=== PATIENT | male | born 1930 | race Caucasian/White ===

== ENCOUNTER 2017-01-16 09:27 | Inpatient (IN) ==
[2017-01-16] MEDS ORDERED: *HR* Propofol 200 MG/20 ML VIAL IVP ONE (09:47)
[2017-01-16] MEDS ORDERED: Lidocaine -MPF 2% 2 ML VIAL ONE (09:48)
[2017-01-16] MEDS ORDERED: *HR* Rocuronium Bromide 50 MG/5 ML VIAL ONE (09:50)
[2017-01-16] MEDS ORDERED: Lidocaine -MPF 4% 5 ML AMPUL ONE (09:52)
[2017-01-16] MEDS ORDERED: *HR* Heparin 5,000 UNIT/ML VIAL ONE ×3 (10:04→14:29)
[2017-01-16] MEDS ORDERED: Vancomycin 1,250 MG in D5% in Water 250 ML IVPB ONE (10:07)
[2017-01-16] MEDS ORDERED: CeFAZolin Pre 2,000 MG/100 ML 2,000 MG/100 ML BAG IVPB ONE (10:07)
--- NOTE | 2017-01-16 10:46 | Anesthesia Evaluation PreOp ---
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), Other (dementia) Other Medical History: Diabetes Type II Anesthesia History: No Prior Anesthetic Complications, Past Anesthesia (left LE amputation ORIF left humerus) Alcohol Use: none Drug use: none Medications and Allergies Aspirin [Lo-Dose Aspirin EC] 81 mg PO HS 01/10/17 [History] Clopidogrel [Plavix] 75 mg PO 1200 01/10/17 [History] Cyanocobalamin (Vitamin B-12) [Vitamin B-12] 1,000 mcg SL 1200 01/10/17 [History ] Donepezil HCl [Aricept] 10 mg PO HS 01/10/17 [History] Gabapentin [Neurontin] 100 mg PO TID 01/10/17 [History] Hydrochlorothiazide 12.5 mg PO DAILY 01/10/17 [History] Insulin Glargine,Hum.rec.anlog [Lantus Solostar] 10 unit SQ TIDWM 01/10/17 [ History] Lisinopril [Zestril] 40 mg PO DAILY 01/10/17 [History] Metformin HCl [Glucophage] 1,000 mg PO HS 01/10/17 [History] Metformin [Glucophage] 500 mg PO BIDWM 01/10/17 [History] Metoprolol XL (24 HR) Succ [Toprol Xl] 25 mg PO DAILY 01/10/17 [History] OxyCODONE/APAP 5/325 [Percocet 5/325 MG] 1 each PO Q6H PRN #20 tablet 01/10/17 [ Rx] Simvastatin [Zocor] 40 mg PO HS 01/10/17 [History] Cephalexin [Keflex] 250 mg PO BID 01/16/17 [History] Insulin Glargine,Hum.rec.anlog [Lantus Solostar] 20 unit SQ HS 01/16/17 [History ] Multivitamin [One Daily Multivitamin] 1 each PO 1200 01/16/17 [History] NIFEdipine [Nifedipine ER] 30 mg PO QAM 01/16/17 [History] Allergies No Known Allergies Allergy (Verified 01/16/17 10:31) - Meds/Allergy Pre-op Review Medications Reviewed: Yes Allergies Reviewed: Yes Beta Blockers on Current Med List: No Anesthesia Results - Labs Laboratory Tests 01/09/17 01/09/17 10:45 10:45 Hgb 13.5 Hct 42.9 Plt Count 336 BUN 24 Creatinine 1.22 - Imaging EKG: report reviewed (NSR with !st AVB and PVCs) Anesthesia Exam Height: 67in Weight: 81kg NPO (# of Hours): 8 Pain Scale: 0 Pain Scale Used: Numeric (1 - 10) - HEENT Pupil (Motor): EOMI Mallampati: II Teeth: Missing Oral Opening: Greater than 3 - DEMURRAGE WORKER LOC: Oriented (to name and place. Cooperative but uncertain what he is having done. consents for him reporting that he is very forgetful) DEMURRAGE WORKER Motor: Normal RUE, Normal LUE, Normal RLE, Normal LLE, Normal Face DEMURRAGE WORKER Sensory: Normal: RUE, LUE, RLE, LLE, Face - Cardiac Rhythm: Regular Murmur: None - Pulmonary Breath Sounds: bilateral Clear Respiratory Effort: Symmetrical Anesthesia Assess/Plan ASA Score: 3 Modified [place] Scale for Level of Consciousness: Cooperative, oriented, and tranquil Anesthetic Plan: General Monitoring Plan: Standard Monitors, A-Line (told patient and family this is a possibility) Recovery Plan: PACU (Discussed risks of GA and line. Will need power glide since no iv access. Agrees to proceed.)
[2017-01-16] MEDS ORDERED: Neostigmine Methylsulfate 3 MG/3 ML SYRINGE ONE ×2 (10:48→15:11)
[2017-01-16] MEDS ORDERED: *HR* FentaNYL (PF) 100 MCG/2 ML VIAL ONE ×2 (11:20→15:28)
--- NOTE | 2017-01-16 11:33 | History & Physical Report ---
Date of Encounter: 01/16/17 Time of Encounter: 11:20 24 Hour HP Update - Instructions Instructions: If the History and Physical is less than 30 days old and was completed prior to A.M. admission and or procedure and has NOT been updated on calendar day of procedure please complete this update prior to performing procedure. - Update Patient reports changes in Medical Condition: No Changes in examination, assessment, or condition: No Changes in Medication: No Preop tests/diagnostics Reviewed: Yes Surgery Remains Indicated: Yes Consent for Planned Operative Procedure(s) Verified: Yes - Pre-Operative Checklist Preoperative Checklist Indicated: Yes Prophylactic Antibiotic Ordered: Yes (vancomycin due to MRSA risk) Home Medications Include Beta Linda: Yes Beta Linda Taken Today (Day of Surgery): Yes Beta Linda Taken Yesterday (Day Prior to Surgery): Yes Is VTE Prophylaxis Indicated?: Yes
[2017-01-16] MEDS ORDERED: Vancomycin 1,000 MG VIAL ONE (11:34)
[2017-01-16] MEDS ORDERED: Lidocaine 1% 20 ML MDV ONE (11:34)
[2017-01-16] MEDS ORDERED: Bupivacaine-MPF 0.25% 10 ML VIAL ONE (11:34)
[2017-01-16] MEDS ORDERED: Heparin 1,000 UNITS/500 mL NS 500 ML ONE ×3 (11:34→12:10)
[2017-01-16] MEDS: Ringers Solution, Lactated 1,000 ML IVC SCH ×2 (11:42→16:05)
[2017-01-16] MEDS ORDERED: Acetaminophen IV 1,000 MG/100 ML INFUS..BTL ONE (11:56)
[2017-01-16] MEDS ORDERED: EPHEDrine 50 MG/ML VIAL ONE (12:30)
[2017-01-16] MEDS ORDERED: Ondansetron 4 MG/2 ML VIAL ONE (13:09)
[2017-01-16] MEDS ORDERED: *HR* HYDROmorphone (PF) 1 MG/ML SYRINGE IVP PRN (13:15)
[2017-01-16] MEDS ORDERED: Ondansetron 4 MG/2 ML VIAL IVP PRN (13:15)
[2017-01-16] MEDS ORDERED: *HR* Labetalol 100 MG/20 ML MDV IVP PRN (13:15)
--- NOTE | 2017-01-16 13:19 | Anesthesia Procedures ---
Date of Encounter: 01/16/17 Time of Encounter: 12:10 Procedures: Anesthesia - Arterial Line Consent obtained: written consent Time out performed: Yes Sedation: Fentanyl (mcg): 100 Supplemental Oxygen via Nasal Cannula (L/min): 15 (anesthesia circuit) Local Anesthetic: Lidocaine 1% Amount of Anesthetic used (mls): 1 Size (Gauge): 20 Length (inches): 1 3/4 Technique Used: sterile prep, guide wire technique, direct puncture technique Post-Procedure: line taped into place, dry sterile dressing placed Patient tolerated procedure: well Complications: none Site: Radial L Vitals: see anesthetic record
[2017-01-16] MEDS ORDERED: *HR* Phenylephrine 10 MG/ML VIAL ONE (14:05)
[2017-01-16] MEDS ORDERED: Esmolol 100 MG/10 ML VIAL IVP ONE (15:15)
--- NOTE | 2017-01-16 16:04 | Operative Note ---
Date of procedure: 01/16/17 Pre-op diagnosis: Peripheral vasculr disease with gangrene Post-op diagnosis: same Procedure: 1. Right lower extremity angiogram. 2. Right superficial femoral and popliteal artery angioplasty with 4 x 220mm balloon. 3. Right ilifemoral and deep femoral endarerectomy with bovine pericardial patch angioplasty. Complications: None Anesthesia: THELMA Surgeon: Raymon Dick Estimated blood loss (cc): 300 Specimen: Right lower extremity plaque Condition: stable Disposition: PACU Procedure in Detail: Indications: The patient is an 86 year old male with a history of peripheral vascular disease. The patient has developed a nonhealing right great toe ulceration with gangrenous changes present at the tip. He was found to have significant iliofemoral artery disease as well as high grade superficial femoral and popliteal artery stenosis. Procedure: The patient was identified in the preoperative area. The risks, benefits, and alternatives of procedure were discussed and all questions were answered. He was taken to the operating room and placed in supine position on the operating room table. After the induction of general endotracheal anesthesia, she was cleaned and draped in normal sterile fashion. An oblique incision was made in the right groin sharply. Hemostasis was obtained with electrocautery. Through a process of blunt and sharp electrocautery dissection , the skin and subcutaneous tissues were incised and the right distal iliac, common femoral, deep femoral and superficial femoral arteries were dissected circumferentially and surrounded with vessel loops. Multiple prior closure devices were identified in the right femoral artery. The vessel was noted to be heavily calcified. The patient received 5000 units of heparin intravenously and additional heparin throughout the case to maintain adequate anticoagulation. The vessels were occluded by applying tension to the vessel loops. A longitudinal ateriotomy was made into the common femoral artery. It was extended proximally into the right external iliac artery. A bentson wire was advanced intothe right superficial femoral artery. A 6 tuvaluan sheath was advanced over the wire. The wire was exchanged and a journey wire was advanced into the below knee popliteal artery. A small amount of contrast was injected and an angiogram revealed Successful crossing of the lesion. A 4 x 200mm balloon was advanced across the superficial femoral and popliteal artery lesions. Angioplasty was performed. Multiple inflations were required. A completion angiogram revealed no hemodynamically significant residual stenosis. The wire and sheath were removed and the vessel was flushed. Heparin was infused into the lumen and the vessel was clamped. Using a dental [place], a standard endarterectomy was performed along the distal external iliac artery. This was extended into the common femoral artery. An eversion endarterectomy was performed on the right deep femoral artery. A firm , calcified and stenoic plaque was removed. Vigorous retrograde flow was then noted upon release of the vessel loop. Proximal and distal endpoints were inspected. No elevated flaps were noted. A bovine pericardial patch was cut to fit the defect and sutured in place with running 6-0 Prolene. Prior to completing the patch anastomosis, each vessel was flushed individually, then reoccluded. Heparinized saline was infused into the lumen. The patch was completed and flow was restored. A firm right inguinal lymph node was excised and sent to pathology. Thrombin and Gelfoam were used to aid in hemostasis. Polyphasic signal was noted distal to the distal end of the patch as well as the posterior tibial artery. Wound was irrigated with antibiotic-containing saline. Platelet-rich and platelet-poor plasma were infused into the wound. The wounds were reapproximated with layer of 2-0 Vicryl followed by two layers of 3-0 and Vicryl 3-0 Monocryl in the subcuticular layer. Sterile dressings were applied. The patient was extubated, taken to recovery room in stable condition.
--- NOTE | 2017-01-16 16:42 | Anesthesia Evaluation Post Op ---
Date of Encounter: 01/16/17 Time of Encounter: 16:42 - Vital Signs Vital Signs: Vital Signs/O2 Sat, Most Current Temp Pulse Resp BP Pulse Ox 98.3 F 90 18 94/58 99 01/16/17 16:24 01/16/17 16:24 01/16/17 16:24 01/16/17 16:24 01/16/17 16:24 - Lungs Lungs: Clear Ascult./Percussion - Airway Airway: Non-obstructed - Cardiovascular Regular Rate - Mental Status Mental Status: Asleep with brisk response to light stimulation - Pain Pain Scale: 5 Pain Scale used: Numeric (1 - 10) - Nausea Vomiting Nausea Vomiting: Not Present - Hydration Hydration: Ice chips, Shahid catheter - Discharge PostOp Status: Transfer Patient to floor
[2017-01-16] MEDS ORDERED: Dextrose Gel 15 GM PO PRN ×2 (17:01)
[2017-01-16] MEDS ORDERED: *HR* Labetalol 20 MG/4 ML SYRINGE IVP PRN (17:01)
[2017-01-16] MEDS ORDERED: D5% in Water 1,000 ML IVC PRN (17:01)
[2017-01-16] MEDS ORDERED: *HR* OxyCODONE Immed Rel 5 MG TABLET PO PRN (17:01)
[2017-01-16] MEDS ORDERED: *HR* HYDROcodone/Acet 5/325 mg TABLET PO PRN (17:01)
[2017-01-16] MEDS ORDERED: Naloxone 0.4 MG/ML INJ IVP PRN (17:01)
[2017-01-16] MEDS ORDERED: *HR* Dextrose 50 % in Water (Syg) 50 ML SYRINGE IVP PRN (17:01)
[2017-01-16] MEDS ORDERED: Acetaminophen 325 MG TABLET PO PRN (17:01)
[2017-01-16] MEDS ORDERED: 0.9 % Sodium Chloride 1,000 ML ONE (17:15)
[2017-01-16] MEDS ORDERED: *HR* Heparin 5,000 UNIT/ML VIAL SQ SCH (18:00)
[2017-01-16] MEDS: Insulin LISPRO 300 UNITS/3 ML VIAL SQ SCH (19:48)
[2017-01-16] MEDS: *HR* Metoprolol 5 MG/5 ML VIAL IVP SCH ×2 (19:48→20:32)
[2017-01-16] MEDS: *HR* Heparin 5,000 UNIT/ML VIAL SQ SCH (19:53)
[2017-01-16] MEDS: 0.9 % Sodium Chloride 1,000 ML IVC SCH (19:59)
[2017-01-16] MEDS: ceFAZolin 2,000 MG in D5% in Water 100 ML IVPB SCH (20:31)
[2017-01-16] MEDS: Gabapentin 100 MG CAPSULE PO SCH (20:32)
[2017-01-16] MEDS ORDERED: Insulin LISPRO 300 UNITS/3 ML VIAL SQ SCH (21:00)
[2017-01-16] MEDS ORDERED: Aspirin Enteric Coated 81 MG Tablet PO SCH (21:00)
[2017-01-16] MEDS ORDERED: Vancomycin 0 MG in D5% in Water 250 ML IVPB ONE (23:00)
[2017-01-17] MEDS: ceFAZolin 2,000 MG in D5% in Water 100 ML IVPB SCH (00:14)
[2017-01-17] MEDS: *HR* Metoprolol 5 MG/5 ML VIAL IVP SCH ×3 (00:14→10:30)
[2017-01-17] MEDS: 0.9 % Sodium Chloride 1,000 ML IVC SCH ×2 (02:34→10:30)
[2017-01-17 05:43] LABS: Basophils % 0.2 %; Eosinophils # 0.1 K/mcL (0.0-0.6); Eosinophils % 0.8 %; Hematocrit 26.8 % (37.5-50.1); Hemoglobin 8.6 g/dL (12.9-16.9); Immature Granulocytes % 0.4 % (0-4); Lymphocytes # 1.7 K/mcL (0.6-4.6); Lymphocytes % 15.7 %; Mean Corpuscular HGB Conc 32.1 g/dL (31.6-35.5); Mean Corpuscular Hemoglobin 30.6 pg (28.0-33.3); Mean Corpuscular Volume 95.4 fL (83.0-100.0); Mean Platelet Volume 10.6 fL (9.4-12.4); Monocytes # 1.1 K/mcL (0.0-1.3); Monocytes % 10.4 %; Neutrophils # 7.7 K/mcL (1.6-8.9); Platelet Count 229 K/mcL (140-400); Red Blood Count 2.81 M/mcL (4.19-5.50); Red Cell Distribution Width 13.7 % (11.5-14.5); Segmented Neutrophils % 72.5 %
[2017-01-17 05:57] LABS: BUN/Creatinine Ratio 15 (6-26); Blood Urea Nitrogen 18 mg/dL (8-26); Calcium 7.8 mg/dL (8.6-10.8); Carbon Dioxide 23 mEq/L (19-29); Chloride 109 mEq/L (98-109); Glucose 186 mg/dL (70-99); Osmolality,Calculated 291 (280-300); Sodium 137 mEq/L (136-145); eGFR For African Americans > 60 (> 60); eGFR For Non-African Americans 57 (> 60)
[2017-01-17 05:58] LABS: Potassium 4.9 mEq/L (3.5-4.5)
[2017-01-17] MEDS: *HR* Heparin 5,000 UNIT/ML VIAL SQ SCH (06:07)
[2017-01-17 07:15] VITALS: BP 90/55
--- NOTE | 2017-01-17 07:17 | Discharge Summary ---
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 His foot is warm and his pedal signals are present. He reports that his foot feels better. He will be discharged today. He will follow-up in clinic in a few weeks. (2) Essential hypertension Priority: Secondary Status: Chronic Comments: The patient was counseled regarding atherosclerotic risk factor reduction. 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 transplanted heart: [place] heart Associated angina: without angina Qualified Code(s): I25.10 - Atherosclerotic heart disease of [place] coronary artery without angina pectoris (6) Chronic kidney disease, stage III (moderate) Priority: Secondary Status: Chronic (7) Acute blood loss as cause of postoperative anemia Priority: Secondary Status: Acute Comments: The patient has acute expected postoperative blood loss anemia. He is hemodynamically stable without evidence of ongoing blood loss. (8) Sleep apnea in adult Priority: Secondary Status: Inactive - Discharge Medications Prescriptions: OxyCODONE/APAP 5/325 [Percocet 5/325 MG] 1 each PO Q4H PRN #30 tablet PRN Reason: POSTOPERATIVE PAIN Home Medications: Aspirin [Lo-Dose Aspirin EC] 81 mg PO HS 01/10/17 [History] Clopidogrel [Plavix] 75 mg PO 1200 01/10/17 [History] Cyanocobalamin (Vitamin B-12) [Vitamin B-12] 1,000 mcg SL 1200 01/10/17 [History ] Donepezil HCl [Aricept] 10 mg PO HS 01/10/17 [History] Gabapentin [Neurontin] 100 mg PO TID 01/10/17 [History] Hydrochlorothiazide 12.5 mg PO DAILY 01/10/17 [History] Insulin Glargine,Hum.rec.anlog [Lantus Solostar] 10 unit SQ TIDWM 01/10/17 [ History] Lisinopril [Zestril] 40 mg PO DAILY 01/10/17 [History] Metformin HCl [Glucophage] 1,000 mg PO HS 01/10/17 [History] Metformin [Glucophage] 500 mg PO BIDWM 01/10/17 [History] Metoprolol XL (24 HR) Succ [Toprol Xl] 25 mg PO DAILY 01/10/17 [History] Simvastatin [Zocor] 40 mg PO HS 01/10/17 [History] Cephalexin [Keflex] 250 mg PO BID 01/16/17 [History] Insulin Glargine,Hum.rec.anlog [Lantus Solostar] 20 unit SQ HS 01/16/17 [History ] Multivitamin [One Daily Multivitamin] 1 each PO 1200 01/16/17 [History] NIFEdipine [Nifedipine ER] 30 mg PO QAM 01/16/17 [History] OxyCODONE/APAP 5/325 [Percocet 5/325 MG] 1 each PO Q4H PRN #30 tablet 01/17/17 [ Rx] Allergies/Adverse Reactions: Allergies No Known Allergies Allergy (Verified 01/16/17 10:31) Date of admission: 01/16/17 16:57 Primary care physician: JAVIER MUELLER Procedure(s) Performed: Right iliofemoral endarterctomy and right superficial femoral and popliteal artery angioplasty. Discharging clinician: Raymon Dick Anticipated date of discharge: 01/17/17 - Patient Status Disposition: Home, Self-Care Condition: Good Functional capacity at discharge: wheelchair bound Overall status at discharge: patient is back to baseline - Discharge Instructions Instructions: Atherectomy (DC), Peripheral Vascular Disorders (DC) Follow Up With: Raymon Dick MD [Partnered Physician] - 02/26/17 3:20 pm [place],PCP [Primary Care Provider] - 01/21/17 2:45 pm Additional Instructions: May remove bandage and shower on 01/18/17. Wash wound gently and pat to dry. No tub baths until 02/15/17. Apply dry gauze to wound daily for 7 days. No driving for [address] Dick at [phone] with questions or concerns. - Diet and Activity Activity: increase activity as tolerated Diet: diabetic diet - Hospital Course Hospital course: Mr. Gamboa is a 86 year old male with peripheral vascular disease with gangrene of the right great toe. He underwent a right iliofemoral endarterectomy and a right superficial femoral and popliteal artery angioplasty. He tolerated the procedure well. His foot was feeling better and warm on postoperative day #1. He was discharged in stable condition without complication. - Time Spent with Patient Total time spent providing and/or coordinating discharge services: Exam Vital Signs, Last 4 Hours Temp Pulse Resp BP Pulse Ox 01/17/17 07:11 99.0 F 88 18 90/55 98 01/17/17 05:08 84 115/44 01/17/17 04:00 79 01/17/17 03:28 98.4 F 81 16 112/49 97 General: Present: Conversant, No Apparent Distress HEENT: Present: Pupils equal Cardiac: Present: Normal S1 and S2 Lungs: Present: Normal Breath Sounds Neuro: Present: Alert and responsive, No focal deficits noted, Motor nerves grossly intact, Sensory nerves grossly intact Abdomen: Present: Soft Vascular: Present: Normal capillary refill, Surgical incisions (no hematoma, incision clean, dry and intact without erythema or drainage.), Other (pedal signals present). Absent: Cyanosis, Edema - VTE Documentation of Mechanical Device: Intermittent pneumatic compression device
[2017-01-17] MEDS ORDERED: Metoprolol XL (24 HR) Succ 25 MG TAB.ER.24H PO SCH (09:00)
[2017-01-17] MEDS ORDERED: NIFEdipine XL (24 HR) 30 MG TAB.ER.24 PO SCH (09:00)
[2017-01-17] MEDS ORDERED: Lisinopril 20 MG TABLET PO SCH (09:00)
[2017-01-17] MEDS ORDERED: hydroCHLOROthiazide 25 MG TABLET PO SCH (09:00)
[2017-01-17] MEDS: Insulin LISPRO 300 UNITS/3 ML VIAL SQ SCH (10:24)
[2017-01-17] MEDS: Gabapentin 100 MG CAPSULE PO SCH (10:25)
[2017-01-17] MEDS ORDERED: Multivit/Ca/Min/Fe/FA 1 TAB TABLET PO SCH (12:00)
[2017-01-17] MEDS ORDERED: Cyanocobalamin (B-12) 1,000 MCG TABLET PO SCH (12:00)
== END 2017-01-17 11:30 | disposition home or self-care (01) | DRG 253 ==
LOC: SAMDAY 09:27 → 2NNU 16:57
PROVIDERS: ADMIT Surgery; ATTEND Surgery